=== PATIENT | male | born 1940 | race Caucasian/White ===

== ENCOUNTER 2023-10-27 16:05 | Outpatient (OUT) | payer MEDICARE, OTHER, SELFPAY ==
--- NOTE | 2023-10-27 | XR_ITS ---
The [address] [address] Patient Name: AMY SANTOS MRN: [id number] date: 1940 Sex: M Assigned Patient Location: RAD Current Patient Location: [facility] Accession/Order Number: [id number] Exam Date: 10/27/2023 16:27 Report Date: 10/29/2023 07:07 At the request of: MAL MELCHOR Procedure: XR abdomen 1V EXAMINATION: XR abdomen 1V HISTORY: kidney stone COMPARISON: XR abdomen 12/20/2015 FINDINGS: KIDNEY/URETER - RIGHT: Suspect a few tiny calcifications within inferior pole of kidney. KIDNEY/URETER - LEFT: Suspect a few small calcifications within inferior pole of kidney. Multiple calcifications projecting over spleen. PELVIS: No visible ureteral stones. BOWEL: No abnormal dilation or deviation. 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 OTHER: Negative. No abnormal gaseous collections. XR/XR abdomen 1V IMPRESSION: 1. Suspect bilateral nephrolithiasis. Evaluation is limited by dense overlying bowel content. Electronically authenticated by: LORENA CAO Date: 10/29/2023 07:07
== END 2023-10-27 16:06 | disposition home or self-care (01) ==
LOC: RAD 16:14
PROVIDERS: Family Provider Family Medicine; PCP Family Medicine; Visit Provider Urology
DX: N20.0 Calculus of kidney (principal)
CPT/HCPCS: 74018

== ENCOUNTER 2023-10-30 15:53 | Outpatient (OUT) | payer MEDICARE, OTHER, SELFPAY ==
--- NOTE | 2023-10-30 16:22 | XR_ITS ---
The [address] [address] Patient Name: AMY SANTOS MRN: [id number] date: 1940 Sex: M Assigned Patient Location: RAD Current Patient Location: [facility] Accession/Order Number: [id number] Exam Date: 10/30/2023 16:17 Report Date: 11/01/2023 04:59 At the request of: MAL MELCHOR Procedure: XR abdomen 1V EXAMINATION: XR abdomen 1V HISTORY: Kidney Stone, N20.0 COMPARISON: XR abdomen 10/27/2023 FINDINGS: KIDNEY/URETER - RIGHT: Tiny calcification projecting over inferior pole. KIDNEY/URETER - LEFT: Several tiny calcifications projecting over kidney. PELVIS: No appreciable ureteral stones. BOWEL: No abnormal dilation or deviation. BONES: No acute abnormality. OTHER: Negative. No abnormal gaseous collections. XR/XR abdomen 1V IMPRESSION: 1. Suspect bilateral nonobstructing nephrolithiasis. No appreciable change. Electronically authenticated by: LORENA CAO Date: 11/01/2023 04:59
== END 2023-10-30 15:54 | disposition home or self-care (01) ==
LOC: RAD 15:56
PROVIDERS: Family Provider Family Medicine; PCP Family Medicine; Visit Provider Urology
DX: N20.0 Calculus of kidney (principal)
CPT/HCPCS: 74018